=== PATIENT | female | born 2000 | race Caucasian/White ===

== ENCOUNTER 2022-01-23 17:35 | Emergency (ER) | payer OTHER, SELFPAY ==
[2022-01-23 19:09] VITALS: BP 114/85; PULSE 75; RESP 18; TEMP 36.9; O2SAT 100
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
== END 2022-01-23 19:49 | disposition home or self-care (01) ==
PROVIDERS: Emergency Provider Nurse Practitioner
DX: S16.1XXA Strain of muscle, fascia and tendon at neck level, initial encounter (principal); V48.5XXA Car driver injured in noncollision transport accident in traffic accident, initial encounter
CPT/HCPCS: 99213; G0463

== ENCOUNTER 2024-11-30 13:32 | Emergency (ER) | payer OTHER, SELFPAY ==
--- OUTSIDE RECORDS SUMMARY | 2024-11-30 13:34 | XMS_ITS | Clinical Summary ---
Author Organization [facility] Address [address] [place] [address] Care Team Providers Care Director Of Analytical Development Name Role Phone Annmarie Munson MD Primary Care Provider [phone] Source Comments [facility],non-owned Affiliates and Associated Physician Practices is amultiple site organization consisting of ambulatory clinics and hospital sitesin [place], [place], [place] and [place]. This disclosure is being madepursuant to the Care Everywhere program and may not contain all information available regarding this patient. Last updated 17.[facility] Allergies No known active allergies Medications * This document contains information received from the source organization and may not represent a complete record from that organization. * Be aware that medications may not be up to date on this document. Alwaysverify current medications with the patient. ALBUTEROL INIndications:f or sports Reasons: for sports Active montelukast (SINGULAIR) 10 MG tablet 7 Active linaCLOtide (LINZESS) 72 MCG capsule Take 1 capsule by mouth every 24 hours 9 Active hydrOXYzine hcl (ATARAX) 10 MG tablet Take 10 mg by mouth as needed Active etonogestrel (NEXPLANON) 68 MG implant Nexplanon 68 mg subdermal implant Inject by subcutaneous route. Active Active Problems Problem Noted Date Diagnosed Date Loss of weight 04/05/2019 Assessment & Plan (05/08/2019 2:19 PM CDT): Weight is stable today, gained 1 lbs since last visit. Denies body image issues, restricting, or binging behaviors. Describes intermittent constipation and associated abdominal pain. Plan CO for feeding regimen. Outlined healthy eating. Discussed daily diet regimen, high calorie foods, and provided examples of adequate foods. Counseled on avoiding driving, walking in dangerous locations secondary low BP. Discussed OTC constipation aids and encourage fluid intake. 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 She has been seen by Clinical Nutrition twice in the past 6 months; was noted to have weight loss due to limited eating schedule, grazing, and poor food choices. She was working on structured eating and eating on a schedule. She has had a total loss of 6.6 kg in the past 6 months. Weight loss due to eating disorder vs anxiety/depression vs hyperthyroidism vs malabsorption vs chronic inflammatory process other. Plan: - Labs: CBC w/ diff to assess for anemia; ESR/CRP; CMP; TSH/Free T4; Vit D - Work with nutrition to add high calorie supplements to most meals to increase calorie intake. - Follow up in 3 weeks for weight check and diet review Routine screening for STI (sexually transmitted infection) 04/05/2019 Assessment & Plan (05/08/2019 2:23 PM CDT): Mar 2019 screening negative. Patient reports intermittent dyspareunia, sometimes decreased mucus production during sex. No pain with tampons. Etiology likely combination of anxiety, poor weight gain, low E, psych medication. Has seen local [facility] in the past. Maybe [facility]? Patient unsure of name. Plan Counseled on safe sex practices. Answered questions. Consider psychiatric medication as a cause. Encouraged to make appointment with [facility] Note: patient does not like males to obtain sexual history Assessment & Plan (04/05/2019 8:37 PM KEYMODULE ASSEMBLY MACHINE TENDER): Assessment: 18 year old sexually active female. States that she condoms regularly and is not currently experiencing any symptoms that would be concerning for infection. She cannot recall if she has had STI testing performed. Plan: - GC/Chlamydia/Trich Amplified probe - Syphilis antibody [place] - Follow up in 3 weeks Asthma 06/28/2016 Chest pain in patient younger than 17 years Family History Medical History Relation Name Comments Other - Psychiatric Brother depressi on Other - Psychiatric Father OCD Hypertension Maternal Grandmother Hypertension Mother Other - Psychiatric Sister 1 OCD Relation Name Status Comments Brother Father Alive Maternal Grandmother Mother Alive Sister 1 Alive Sister 2 Alive Social History Tobacco Use Types Packs/Day Years Used Date Smoking Tobacco: Never Smokeless Tobacco: Never Tobacco Cessation:Counseling Given: Yes Alcohol Use Standard Drinks/Week Comments Not Currently 0 (1 standard drink = 0.6 oz pur e alcohol) not in the last 1-2 weeks PHQ-2 Answer Date Recorded PHQ2 TOTAL SCORE 2 07/24/2020 Comments No Sex and Gender Information Value Date Recorded Sex Assigned at Not on file Legal Sex Female 7:33 AM KEYMODULE ASSEMBLY MACHINE TENDER Gender Identity Not on file Sexual Orientation Not on file Last Filed Vital Signs Vital Sign Reading Time Taken Comments Blood Pressure 100/68 07/24/2020 12:45 PM CDT Pulse 98 07/24/2020 12:45 PM CDT Temperature 36.5 C (97.7 F) 07/24/2020 12:45 PM CDT Respiratory Rate 20 07/24/2020 12:45 PM CDT Oxygen Saturation 98% 07/24/2020 12:45 PM CDT Inhaled Oxygen Concentration - - Weight 52.6 kg (116 lb) 07/24/2020 12:45 PM CDT Height 165.1 cm (5' 5) 07/24/2020 12:45 PM CDT Body Mass Index 19.3 07/24/2020 12:45 PM CDT Plan of Treatment Health Maintenance Due Date Last Done Comments HIV SCREENING 11/11/2015 HPV VACCINE (1 - 3-dose series) 11/11/2015 HEPATITIS C SCREENING 11/06/2018 DTAP/TDAP/TD VACCINES (1 - Tdap) 11/11/2019 HEPATITIS B VACCINE (1 of 3 - 19+ 3-dose series) 11/11/2019 CHLAMYDIA/GONORRHEA SCREENING 04/05/2020 04/05/2019 DEPRESSION SCREENING 02/29/2024 COVID-19 VACCINE (2023-2 5 season) 2024 INFLUENZA VACCINE (#1) 2024 6, 01/02/2015 ZOSTER VACCINE (1 of 2) 2050 HIB VACCINE Aged Out No longer eligi ble based on patient's age to complete this topic MENINGOCOCCAL (Group B) VACCINE SHARED DECISION-MAKING Aged Out No longer eligible based on patient's age to complete this topic MENINGOCOCCAL GROUPS A/C/Y/W VACCINE Aged Out No longer eligible b ased on patient's age to complete this topic PNEUMOCOCCAL VACCINE Aged Out No long er eligible based on patient's age to complete this topic Procedures Procedure Name Priority Date/Time Associated Diagnosis Comments CHLAMYDIA + GC AMPLIFIED PROBE Routine 04/05/2019 3:56 PM KEYMODULE ASSEMBLY MACHINE TENDER Routine screening for STI (sexually transmitted infection) from Last 3 Months or Most Recently Relevant to Health Maintenance Results * CHLAMYDIA + GC AMPLIFIED PROBE (STL) (04/05/2019 3:56 PM KEYMODULE ASSEMBLY MACHINE TENDER) Chlamydia Amplified Probe Negative Negative 04/06/2019 12:09 PM KEYMODULE ASSEMBLY MACHINE TENDER [facility] GC Amplified Probe Negative Negative 04/06/2019 12:09 PM KEYMODULE ASSEMBLY MACHINE TENDER [facility] Microbiology URINE / Unknown Collection / Unknown 04/05/2019 3:56 PM KEYMODULE ASSEMBLY MACHINE TENDER 04/05/2019 3:59 PM KEYMODULE ASSEMBLY MACHINE TENDER Narrative [facility] - 04/06/2019 12:09 PM KEYMODULE ASSEMBLY MACHINE TENDER Results based on detection/no detection of ribosomal RNA by amplified method. Luis Salcedo MD LAB - MICROBIOLOGY [facility] Final Result [facility] [address] [place] [address], [facility] [phone] from Last 3 Months or Most Recently Relevant to Health Maintenance Insurance [facility] CIGNA CIGNA Care Teams Director Of Analytical Development Relationship Specialty Start Date End Date Annmarie Munson MD [address] [place] [address] PCP - General Pediatrics 01/23/19
--- OUTSIDE RECORDS SUMMARY | 2024-11-30 13:34 | XMS_ITS | Clinical Summary ---
Author Organization [facility] Address [address] [place] [address] Care Team Providers Care Rehab Nurse Name Role Phone Iris Goodman NP Primary Care Provider [phone] Allergies No known active allergies Medications etonogestrel (NEXPLANON) 68 MG SC implant Nexplanon 68 mg subdermal implant Inject by subcutaneous route. Active hydrOXYzine (ATARAX) 10 MG tablet Take 10 mg by mouth as needed. Active Active Problems Problem Noted Date Diagnosed Date Anxiety and depression 12/23/2020 Immunizations Immunization Administration Dates Next Due Dtap (Generic) 07/22/2006, 3,05/16/2001,03/01,01/18/2001 HPV4 (Gardasil) 01/02/2016,07/25/2015 Hepatitis A 07/28/2011,10/17/2008 Hepatitis B 08/16/2001,05/16/2001,2000 Hib 03/16/2002, 2,03/21/2001,12/30 Hib (Generic) 03/16/2002, 2,03/21/2001,12/30 Influenza Adult (Generic) 01/24/2016,01/02/2015 MENINGOCOCCAL A C Y&W-135 oligosaccharide (MENVEO) 07/20/2017 MMR 07/22/2006,03/16/2002 Menactra 07/04/2012 Meningcoccal Group B (Bexser o)(aka Meningitis) 09/26/2018 Pneumococcal (Prevnar 13) 05/17/2002 Polio Ipv (Generic) 07/22/2006, 3,03/21/2001,12/30 Polio Opv (Generic) 07/22/2006, 3,03/21/2001,12/30 Tdap (Generic) 07/04/2012 Varicella Vaccine 07/22/2006,11/13/2001 Family History Medical History Relation Comments Hyperlipidemia Mother Relation Status Comments Father Alive Mother Alive Social History Tobacco Use Types Packs/Day Years Used Date Smoking Tobacco: Never Smokeless Tobacco: Never Tobacco Cessation:Counseling Given: Yes Comments:The provider can provide you with more information about quitting. Alcohol Use Standard Drinks/Week Comments Not Currently 0 (1 standard drink = 0.6 oz pur e alcohol) PHQ-2 Answer Date Recorded PHQ-2 Score - If the patient scores above 3, please move on to questions 3-9 1 10/29/2021 Comments No Sex and Gender Information Value Date Recorded Sex Assigned at Not on file Legal Sex Female 11:55 AM CDT Gender Identity Not on file Sexual Orientation Not on file Last Filed Vital Signs Vital Sign Reading Time Taken Comments Blood Pressure 89/61 10/29/2021 10:42 AM CDT Pulse 68 10/29/2021 10:42 AM CDT Temperature 37.1 C (98.8 F) 10/29/2021 10:42 AM CDT Respiratory Rate 16 10/29/2021 10:42 AM CDT Oxygen Saturation 98% 10/29/2021 10:42 AM CDT Inhaled Oxygen Concentration - - Weight 48.5 kg (107 lb) 10/29/2021 10:42 AM CDT Height 165.1 cm (5' 5) 10/29/2021 10:42 AM CDT Body Mass Index 17.81 10/29/2021 10:42 AM CDT Plan of Treatment Health Maintenance Due Date Last Done Comments Annual Physical 11/11/2003 Hepatitis C 2018 Meningococcal B Vaccine (2 of 2 - Bexsero SCDM 2-dose series) 03/29/2019 09/26/2018 DTaP, Tdap and Td Vaccines (7 - Td or Tdap) 07/04/2022 07/04/2012, 07/22/2006, 05/17/2002, Additional history exists Cervical Cancer Screening Pap Smear (Age 21 to 29) Every 3 Years 01/02/2024 01/01/2021 Cervical Cancer Screening 01/02/2024 COVID-19 Vaccine ( season) 2024 Influenza Adult (#1) 2024 01/24/2016, 01/03/20 15 Hepatitis B Vaccines Completed 08/16/2001, 05/16/2001, 2000 Pneumococcal Vaccine: Pediatrics (0 to 5 Years) and At-Risk Patients (6 to 49 Years) Aged Out 05/17/2002 No longer eligible based on patient's age to complete this topic HPV Vaccines Completed 01/02/2016, 07/25/2015 Meningococcal Vaccine Completed 07/20/2017, 013 RSV Immunizations Under 20 Months Aged Out No longer eligible based on patient's age to complete this topic Insurance [facility] Care Teams Rehab Nurse Relationship Specialty Start Date End Date Iris Goodman NP [address] [place] [address] PCP - General NURSE PRACTITIONER 12/16/20
[2024-11-30 13:39] VITALS: BP 111/61; PULSE 73; RESP 18; TEMP 37.4; O2SAT 100
[2024-11-30 13:51] LABS: EDUAAPPEAR Cloudy; EDUABILI Negative (Negative); EDUABLOOD 3+ (Negative); EDUACOLOR1 Light/Pale; EDUAGLUCOSE Negative (Negative); EDUAKETONE Negative (Negative); EDUALEUKO 1+ (Negative); EDUANITRATE Positive (Negative); EDUAPH 6.0; EDUAPROTEIN 1+ (Negative); EDUASPGRAVITY 1.005; EDUAUROBILI 0.2
--- NOTE | 2024-11-30 14:41 | ED.FEMALEGU ---
HPI - Female Genitourinary General Chief complaint: Urogenital-Female Stated complaint: UTI Time Seen by Provider: 11/30/24 13:45 Source: patient and RN notes reviewed Mode of arrival: ambulatory Limitations: no limitations History of Present Illness HPI Narrative: 24-year-old female presents Express Care complaining of urinary symptoms for 2 days. Patient reports having dysuria, increased frequency, hesitancy, suprapubic pressure, and chills. Patient denies any fevers, abdominal pain, body aches, hematuria, vaginal discharge, nausea, vomiting, diarrhea. Patient denies any concerns for STIs or any chance of . Patient has not taken anything [id number]-[id number] for symptoms. Patient denies any significant past medical history. Related Data Allergies Allergy/AdvReac Type Severity Reaction Status Date / Time No Known Allergies Allergy Mild Verified 11/30/24 13:36 Review of Systems Review of Systems: CONSTITUTIONAL: Denies fever, body aches, or sweats. Positive for chills. EYES: Denies visual changes, redness, or discharge. ENT: Denies rhinorrhea, congestion, sore throat, or otalgia. CARDIOVASCULAR: Denies chest pain, palpitations, or edema. RESPIRATORY: Denies cough or dyspnea. GASTROINTESTINAL: Denies abdominal pain, nausea, vomiting, or diarrhea. GENITOURINARY: Positive for dysuria, hesitancy, suprapubic pressure, increased frequency. Negative for hematuria or vaginal discharge. SKIN: Denies rash or itching. MUSCULOSKELETAL: Denies back pain, joint pain, or myalgia. NEUROLOGIC: Denies headache, numbness, or weakness. PSYCHIATRIC: Denies anxiety or depression. All other systems reviewed are negative, except as documented in HPI. PMFSH Social History Social History Smoking status: Never smoker Alcohol intake: never Comments At the time of my signature, I reviewed and agree with the nursing past medical, surgical, social, and family history. There is no relevant family history pertinent to the patient complaint. Exam Narrative: GENERAL: This is a well-nourished, well-developed adult, in no apparent distress. They are non ill-appearing, nontoxic appearing. HEAD: normocephalic, atraumatic. EYES: Sclera clear/white. Vision is grossly intact. Conjunctiva normal bilaterally. Extraocular movements intact. EARS: External ears normal,Hearing grossly intact. NOSE: External nose normal THROAT: Mucous membranes moist NECK: Normal range of motion CARDIOVASCULAR: Regular rate and rhythm. Normal S1-S2. No clicks, gallops, rubs, murmurs. RESPIRATORY: Respiratory rate normal, respiratory effort nonlabored, no respiratory distress. Lung sounds clear to auscultation throughout. Lung sounds equal bilaterally. No adventitious lung sounds. GASTROINTESTINAL: Abdomen soft, flat, mild suprapubic tenderness to palpation, nondistended. Bowel sounds are active. No hepato-splenomegaly, or palpable masses. No guarding or rigidity. No rebound tenderness. SKIN: warm, Dry, intact with no suspicious lesions or rash, good texture and turgor. NEURO: awake, alert, and oriented to person, place and time. There were no obvious focal neurologic abnormalities. EXTREMITIES: No joint tenderness, effusion, or edema noted. BACK: Nontender without deformity. No CVA tenderness. Course Course Emergency Course: Portions of this record may have been created with voice recognition software Level of Care: Express Care Visit Vital Signs Vital signs: Vital Signs Temperature 99.3 F 11/30/24 13:39 Pulse Rate 73 11/30/24 13:39 Respiratory Rate 18 11/30/24 13:39 Blood Pressure 111/61 11/30/24 13:39 Pulse Oximetry 100 11/30/24 13:39 Oxygen Delivery Room Air 11/30/24 13:39 Temperature 99.3 F 11/30/24 13:39 Pulse Rate 73 11/30/24 13:39 Respiratory Rate 18 11/30/24 13:39 Blood Pressure 111/61 11/30/24 13:39 Pulse Oximetry 100 11/30/24 13:39 Oxygen Delivery Room Air 11/30/24 13:39 MDM - Female Genitourinary MDM Narrative Medical decision making narrative: Urine dipstick 1+ leukocytes, 3+ blood, positive nitrates, 1+ protein. Urine culture pending. Symptoms consisted urinary tract infection. Will treat with Macrobid. Discussed physical exam findings. Advised supportive measures and signs/symptoms to go to the ER. Pt is appropriate for outpt treatment and f/u. Differential Diagnosis Differential diagnosis: Likely urinary tract infection, cystitis and other (Pyelonephritis) Lab Data Attestation: I reviewed the patient's lab results. Labs: Lab Results 11/30/24 Range/Units 13:48 POC Urine Color Light/pale POC Urine Clarity Cloudy POC Urine pH 6.0 POC Ur Specif [place] 1.005 POC Urine Protein 1+ (Negative) POC Ur Glucose (UA) Negative (Negative) POC Urine Ketones Negative (Negative) POC Urine Blood 3+ (Negative) POC Urine Nitrite Positive (Negative) POC Urine Bilirubin Negative (Negative) POC Urine Urobilinogen 0.2 POC U Leukocyte Esteras 1+ (Negative) Discharge Plan Discharge Clinical Impression: Urinary tract infection Patient Disposition: Home Condition: Stable Instructions: Antibiotic Form, Urinary Tract Infection in Women (ED) Additional Instructions: Take the antibiotic as prescribed The urine will be sent of for a culture to identify what type of bacteria is causing your infection. If the culture shows that the antibiotic will not get rid of your infection, you will be notified and a new antibiotic will be called in for you. Increase water intake you will need to follow up with your PCP 3-5 days. Go to the ER for any worsening symptoms, abdominal pain, fevers, nausea, vomiting, or any other concerns Patient Language: Persian Prescriptions: New nitrofurantoin monohyd/m-cryst [Macrobid] 100 mg capsule 100 mg PO Q12H 5 Days Qty: 10 0RF Rx Instructions: must administer with a meal/food Follow-up/Referrals: PHYSICIAN,FINE ARTS INSTRUCTOR [Primary Care Provider, Internal Medicine] Time of Disposition: 14:03
== END 2024-11-30 14:11 | disposition home or self-care (01) ==
DX: N39.0 Urinary tract infection, site not specified (principal)
CPT/HCPCS: 81003; 87077; 87086; 87186; 99213; G0463

== ENCOUNTER 2024-12-02 15:41 | Emergency (ER) | payer OTHER, SELFPAY ==
--- OUTSIDE RECORDS SUMMARY | 2024-12-02 15:43 | XMS_ITS | Clinical Summary ---
Author Organization [facility] Address [address] [place] [address] Care Team Providers Care Mental Health Coordinator Name Role Phone Iris Goodman NP Primary Care Provider [phone] Allergies No known active allergies Medications etonogestrel [...] patient's age to complete this topic Insurance [facility] Care Teams Mental Health Coordinator Relationship Specialty Start Date End Date Iris Goodman NP [address] [place] [address] PCP - General NURSE PRACTITIONER 12/16/20
--- OUTSIDE RECORDS SUMMARY | 2024-12-02 15:44 | XMS_ITS | Clinical Summary ---
Author Organization [facility] Address [address] [place] [address] Care Team Providers Care Water Pollution Specialist Name Role Phone Annmarie Munson MD Primary Care Provider [phone] Source Comments [facility],non-owned Affiliates and Associated Physician Practices is amultiple site organization consisting of ambulatory clinics and hospital sitesin [place], [place], [place] and [place]. This disclosure is being madepursuant to the Care Everywhere program and may not contain all information available regarding this patient. Last updated 17.[facility] Allergies No known active allergies Medications * [...] intermittent constipation and associated abdominal pain. Plan [place] for feeding regimen. Outlined healthy eating. Discussed daily diet regimen, high calorie foods, and provided examples of adequate foods. Counseled on avoiding driving, walking in dangerous locations secondary low BP. Discussed OTC constipation aids and encourage fluid intake. Continue following with psychiatrist and therapist Assessment & Plan (04/05/2019 8:33 PM SYSTEM SOFTWARE DEVELOPER): Assessment: Edenilson Suh is an 18 year [...] low E, psych medication. Has seen local CLOUD SYSTEMS ADMINISTRATOR in the past. Maybe [facility]'s Sophia? Patient unsure of name. Plan Counseled on safe sex practices. Answered questions. Consider psychiatric medication as a cause. Encouraged to make appointment with CLOUD SYSTEMS ADMINISTRATOR Note: patient does not like males to obtain sexual history Assessment & Plan (04/05/2019 8:37 PM SYSTEM SOFTWARE DEVELOPER): Assessment: 18 year old sexually active female. States that she condoms regularly and is not currently experiencing any symptoms that would be concerning for infection. She cannot recall if she has had STI testing performed. Plan: - GC/Chlamydia/Trich Amplified probe - Syphilis antibody [place] - Follow up in 3 weeks Asthma [...] on file Legal Sex Female 7:33 AM SYSTEM SOFTWARE DEVELOPER Gender Identity Not on file Sexual Orientation [...] GC AMPLIFIED PROBE Routine 04/05/2019 3:56 PM SYSTEM SOFTWARE DEVELOPER Routine screening for STI (sexually transmitted infection) from Last 3 Months or Most Recently Relevant to Health Maintenance Results * CHLAMYDIA + GC AMPLIFIED PROBE (STL) (04/05/2019 3:56 PM SYSTEM SOFTWARE DEVELOPER) Chlamydia Amplified Probe Negative Negative 04/06/2019 12:09 PM SYSTEM SOFTWARE DEVELOPER [facility] GC Amplified Probe Negative Negative 04/06/2019 12:09 PM SYSTEM SOFTWARE DEVELOPER [facility] Microbiology URINE / Unknown Collection / Unknown 04/05/2019 3:56 PM SYSTEM SOFTWARE DEVELOPER 04/05/2019 3:59 PM SYSTEM SOFTWARE DEVELOPER Narrative [facility] - 04/06/2019 12:09 PM SYSTEM SOFTWARE DEVELOPER Results based on detection/no detection of ribosomal RNA by amplified method. Luis Salcedo MD LAB - MICROBIOLOGY [facility]CID Final Result [facility] [address] [place] [address], [facility] [phone] from Last 3 Months or Most Recently Relevant to Health Maintenance Insurance [facility] [employer] CIGNA Care Teams Water Pollution Specialist Relationship Specialty Start Date End Date Annmarie Munson MD [address] [place] [address] PCP - General Pediatrics 01/23/19
[2024-12-02 15:46] VITALS: BP 135/89; PULSE 97; RESP 18; TEMP 36.8; O2SAT 97
--- OUTSIDE RECORDS SUMMARY | 2024-12-02 16:59 | XMS_ITS | Clinical Summary ---
Author Organization [facility] Address [address] [place] [address] Care Team Providers Care Dealer Support Technician Name Role Phone Iris Goomdan NP Primary Care Provider [phone] Allergies No known active allergies Medications etonogestrel [...] to complete this topic Insurance [facility] Care Teams Dealer Support Technician Relationship Specialty Start Date End Date Iris Goodman NP [address] [place] [address] PCP - General NURSE PRACTITIONER 12/16/20
--- OUTSIDE RECORDS SUMMARY | 2024-12-02 16:59 | XMS_ITS | Clinical Summary ---
Author Organization [facility] Address [address] [place] [address] Care Team Providers Care Tool Crib Manager Name Role Phone Annmarie Munson MD Primary Care Provider [phone] Source Comments [facility],non-owned Affiliates and Associated Physician Practices is amultiple site organization consisting of ambulatory clinics and hospital sitesin [place], [place], [place] and [place]. This disclosure is being madepursuant to the Care Everywhere program and may not contain all information available regarding this patient. Last updated 17.[facility] [facility] Allergies No known active allergies Medications * [...] intermittent constipation and associated abdominal pain. Plan [place] for feeding regimen. Outlined healthy eating. Discussed daily diet regimen, high calorie foods, and provided examples of adequate foods. Counseled on avoiding driving, walking in dangerous locations secondary low BP. Discussed OTC constipation aids and encourage fluid intake. Continue following with psychiatrist and therapist Assessment & Plan (04/05/2019 8:33 PM FLOAT NURSE): Assessment: Edenilson Suh is an 18 year [...] low E, psych medication. Has seen local DOG FOOD SHREDDER OPERATOR in the past. Maybe [facility]'s [place]? Patient unsure of name. Plan Counseled on safe sex practices. Answered questions. Consider psychiatric medication as a cause. Encouraged to make appointment with DOG FOOD SHREDDER OPERATOR Note: patient does not like males to obtain sexual history Assessment & Plan (04/05/2019 8:37 PM FLOAT NURSE): Assessment: 18 year old sexually active female. States that she condoms regularly and is not currently experiencing any symptoms that would be concerning for infection. She cannot recall if she has had STI testing performed. Plan: - GC/Chlamydia/Trich Amplified probe - Syphilis antibody [place] - Follow up in 3 weeks Asthma [...] on file Legal Sex Female 7:33 AM FLOAT NURSE Gender Identity Not on file Sexual Orientation [...] GC AMPLIFIED PROBE Routine 04/05/2019 3:56 PM FLOAT NURSE Routine screening for STI (sexually transmitted infection) from Last 3 Months or Most Recently Relevant to Health Maintenance Results * CHLAMYDIA + GC AMPLIFIED PROBE (STL) (04/05/2019 3:56 PM FLOAT NURSE) Chlamydia Amplified Probe Negative Negative 04/06/2019 12:09 PM FLOAT NURSE [facility] GC Amplified Probe Negative Negative 04/06/2019 12:09 PM FLOAT NURSE [facility] Microbiology URINE / Unknown Collection / Unknown 04/05/2019 3:56 PM FLOAT NURSE 04/05/2019 3:59 PM FLOAT NURSE Narrative [facility] - 04/06/2019 12:09 PM FLOAT NURSE Results based on detection/no detection of ribosomal RNA by amplified method. Luis Salcedo MD LAB - MICROBIOLOGY [facility] Final Result [facility] [address] [place] [address], [facility] [phone] from Last 3 Months or Most Recently Relevant to Health Maintenance Insurance [facility] CIGNA CIGNA Care Teams Tool Crib Manager Relationship Specialty Start Date End Date Annmarie Munson MD [address] [place] [address] PCP - General Pediatrics 01/23/19
--- NOTE | 2024-12-02 17:09 | ED.WOUNDLAC ---
HPI - Wound/Laceration General Chief Complaint: Wound/Laceration Stated Complaint: open wound at groin Time Seen by Provider: 12/02/24 16:44 History of Present Illness HPI narrative: Patient is a 24-year-old female who presents ER with a concern for wound to the vaginal area. Recently diagnosed UTI and started on antibiotic. She reports that she started having the discomfort 3 days ago and there has been some pus that drained from the area. Since then has become wrong painful. No vaginal discharge. Tender to touch. Related Data Allergies Allergy/AdvReac Type Severity Reaction Status Date / Time No Known Allergies Allergy Mild Verified 12/02/24 15:50 Review of Systems Constitutional: Constitutional: Reports no additional constitutional complaints Gastrointestinal: Gastrointestinal: Reports no additional gastrointestinal complaints Genitourinary: Genitourinary: Reports no additional female genitourinary complaints Integumentary/Breasts: Skin/Breast: Reports system reviewed and no additional complaints, except as docu PMFSH Social History Social History Smoking status: Never smoker Alcohol intake: never Exam Narrative: GENERAL: Well-appearing, well-nourished, and in no acute distress. HEAD: Normocephalic, atraumatic. : There is a brought ulcerated area of skin lateral to labia minora on the right side. No vesicles or pustules. There are 2 scabbed areas that are healing to labia majora on the right side may be from razor injury. EXTREMITIES: Normal range of motion. No edema. SKIN: Warm, dry, no rash. NEURO: Alert and oriented x3. PSYCH: Normal mood and affect. Course Course Emergency Course: Patient did recently shave her pubic region. There are couple areas that look like possible ingrown hair is or infection/scratching from the irritation. Possible she may injury the labia minora as well. No evidence of herpetic or shingles lesion. Recommended barrier cream such as Desitin Vital Signs Vital signs: Vital Signs Temperature 98.2 F 12/02/24 15:46 Pulse Rate 97 12/02/24 15:46 Respiratory Rate 18 12/02/24 15:46 Blood Pressure 135/89 12/02/24 15:46 Pulse Oximetry 97 12/02/24 15:46 Oxygen Delivery Room Air 12/02/24 15:46 Temperature 98.2 F 12/02/24 15:46 Pulse Rate 97 12/02/24 15:46 Respiratory Rate 18 12/02/24 15:46 Blood Pressure 135/89 12/02/24 15:46 Pulse Oximetry 97 12/02/24 15:46 Oxygen Delivery Room Air 12/02/24 15:46 Discharge Plan Discharge Clinical Impression: Skin ulcer Patient Disposition: Home Condition: Stable Additional Instructions: Apply a barrier cream such as Desitin to the area of irritation to help ease your discomfort. Patient Language: Yoruba Prescriptions: No Action nitrofurantoin monohyd/m-cryst [Macrobid] 100 mg capsule 100 mg PO Q12H 5 Days Qty: 10 0RF Rx Instructions: must administer with a meal/food Follow-up/Referrals: Ally Sparks MD [Physician, RATE CLERK PASSENGER] - 1 Week PHYSICIAN,BAG CUTTER [Primary Care Provider, Internal Medicine]
[2024-12-02 17:45] VITALS: BP 128/73; PULSE 80; RESP 18; O2SAT 99
== END 2024-12-02 17:48 | disposition home or self-care (01) ==
PROVIDERS: Emergency Provider Emergency Medicine
DX: N76.6 Ulceration of vulva (principal)
CPT/HCPCS: 99281